=== PATIENT | male | born 1965 | race Caucasian/White ===

== ENCOUNTER 2018-03-08 02:33 | Emergency (ER) | payer OTHER ==
[2018-03-08 02:57] LABS: Blood Gas Oxyhemoglobin 92.1 % (94-97); Blood O2 Saturation 94.1 % (92-98.5)
[2018-03-08 03:02] LABS: Absolute Lymphocytes (CBC) 2.6 K/uL (0.7-4.9); Absolute Monocytes 0.6 K/uL (0.1-1.3); Basophils % 0.4 % (0-1.3); Eosinophils % 1.2 % (0-4.4); Hematocrit 46.6 % (39.6-49.0); MCH 29.1 pg (27.0-35.0); MCV 85.2 fL (80-100); MPV 7.6 fL (7.6-11.3); Monocytes % 6.6 % (3.3-12.3); RBC Red Blood Cell Count 5.46 M/uL (4.33-5.43)
[2018-03-08 03:18] LABS: Potassium 3.8 mmol/L (3.5-5.1)
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
[2018-03-08 05:07] LABS: Urine Blood NEGATIVE (NEG); Urine Glucose 2+ (NEG); Urine Protein NEGATIVE (NEG); Urine Specific Gravity 1.015 (1.005-1.030); Urine pH 5.5 (5.0-7.0)
--- NOTE | 2018-03-08 06:41 | EKG ---
Test Date: 2018-03-08 Test Time: 02:58:24 Facility Worker: AJAY MEASUREMENT RESULTS: Intervals: Rate: 104 TX: 164 QRSD: 106 QT: 344 QTc: 452 [place]: P: 50 TX: 164 QRS: -37 T: -3 INTERPRETIVE STATEMENTS: Sinus tachycardia with occasional premature atrial complexes Left axis deviation Low voltage QRS Possible Anterolateral infarct, age undetermined Abnormal ECG No previous ECG available for comparison Electronically Signed On 03-08-18 06:41:29 CDT by Abhishek Morales
--- NOTE | 2018-03-08 09:58 | RAD REPORT ---
EXAM DESCRIPTION: RAD - Chest Single View - 03/08/2018 3:19 am CLINICAL HISTORY: Chest pain, shortness of breath, heat exhaustion COMPARISON: May 2011 TECHNIQUE: AP portable chest image was obtained 0239 hours . FINDINGS: Lungs are clear. Heart and vasculature are normal. No measurable pleural effusion and no p neumothorax. No gross bony abnormality seen. No acute aortic findings suspected. IMPRESSION: No acute cardiopulmonary process. No significant change from comparison.
== END 2018-03-08 04:12 | disposition home or self-care (01) ==
LOC: ER 02:33
DX: R06.02 Shortness of breath (principal); W92.XXXA Exposure to excessive heat of man-made origin, initial encounter; Y93.89 Activity, other specified; Y92.89 Other specified places as the place of occurrence of the external cause; Y99.8 Other external cause status; Z79.82 Long term (current) use of aspirin; I10 Essential (primary) hypertension; E11.9 Type 2 diabetes mellitus without complications
CPT/HCPCS: 36415; 71045; 80048; 81003; 82550; 82805; 84484; 85025; 93005; 96360; 99284